=== PATIENT | female | born 1995 | race American Indian/Alaskan Native ===

== ENCOUNTER 2019-01-01 10:56 | Emergency (ER) | payer OTHER ==
--- NOTE | 2019-01-01 11:24 | Event Note ---
ED Screening Note Date of service: 01/01/19 Time: 11:24 ED Screening Note: This is a 23 y.o. F. that presents to the ER with dysuria and vaginal discharge for 2 days ago. LMP 12/05/2018 This initial assessment/diagnostic orders/clinical plan/treatment(s) is/are subject to change based on patients health status, clinical progression and re- assessment by fellow clinical providers in the ED. Further treatment and workup at subsequent clinical providers discretion. Patient/guardian urged not to elope from the ED as their condition may be serious if not clinically assessed and managed. Initial orders include: Labs
--- NOTE | 2019-01-01 11:36 | Emergency Department Report ---
ED Female HPI - General Chief complaint: Urogenital-Female Stated complaint: PAIN WHEN URINATION Time Seen by Provider: 01/01/19 11:22 Source: patient Mode of arrival: Ambulatory Limitations: No Limitations - History of Present Illness Initial comments: Ms. Gallardo is a healthy 23 yo female who presents with dysuria and malodorous urine. Denies vaginal discharge. No abdominal pain. NO fever. MD Complaint: dysuria -: Gradual Severity: mild Quality: burning Consistency: intermittent Worsens with: urination Are you Now?: No - Related Data Previous Rx's Medication Instructions Recorded Last Taken Type cephALEXin [Keflex] 500 mg PO Q6HR 7 Days #28 capsule 01/01/19 Unknown Rx Allergies Allergy/AdvReac Type Severity Reaction Status Date / Time No Known Allergies Allergy Unverified 01/01/19 10:58 ED Review of Systems ROS: Stated complaint: PAIN WHEN URINATION Other details as noted in HPI Constitutional: denies: fever, malaise Gastrointestinal: denies: abdominal pain, nausea, vomiting Genitourinary: dysuria Musculoskeletal: denies: back pain ED Past Medical Hx - Past Medical History Previous Medical History?: No - Surgical History Past Surgical History?: No - Social History Smoking Status: Never Smoker Substance Use Type: None - Medications Home Medications: Home Medications Medication Instructions Recorded Confirmed Last Taken Type cephALEXin [Keflex] 500 mg PO Q6HR 7 Days #28 capsule 01/01/19 Unknown Rx ED Physical Exam - General Limitations: No Limitations General appearance: alert, in no apparent distress - Head Head exam: Present: atraumatic, normocephalic - ENT ENT exam: Present: normal orophraynx - Neck Neck exam: Present: normal inspection, full ROM - Respiratory Respiratory exam: Absent: respiratory distress - GI/Abdominal GI/Abdominal exam: Present: soft. Absent: tenderness, rebound - Neurological Exam Neurological exam: Present: alert, oriented X3 - Psychiatric Psychiatric exam: Present: normal affect, normal mood ED Course Vital Signs 01/01/19 11:22 Temperature 98.4 F Pulse Rate 74 Respiratory 18 Rate Blood Pressure 109/61 O2 Sat by Pulse 100 Oximetry ED Medical Decision Making - Medical Decision Making Ms. Gallardo provided keflex for UTI symptoms. Given referral to OBGYN [employer] for pap smear and further evaluation. Critical care attestation.: If time is entered above; I have spent that time in minutes in the direct care of this critically ill patient, excluding procedure time. ED Disposition Clinical Impression: UTI (urinary tract infection) Disposition: TO HOME OR SELFCARE Is pt being admited?: No Does the pt Need Aspirin: No Condition: Stable Instructions: Urinary Tract Infection in Women (ED) Prescriptions: cephALEXin [Keflex] 500 mg PO Q6HR 7 Days #28 capsule Referrals: VIKY YANEZ MD [Staff Physician] - 3-5 Days Forms: Work/School Release Form(ED)
[2019-01-01 11:56] VITALS: BP 110/64
== END 2019-01-01 11:55 | disposition home or self-care (01) ==
LOC: ED 10:56
DX: N39.0 Urinary tract infection, site not specified (principal); Z79.899 Other long term (current) drug therapy
CPT/HCPCS: 99282